=== PATIENT | female | born 1970 | race Hispanic/Latino ===

== ENCOUNTER 2017-12-27 11:45 | Outpatient (CLI) | payer BC ==
--- NOTE | 2017-12-27 14:48 | XRay Report ---
XRAY LEFT SHOULDER THREE VIEWS: 12/27/17 11:45:00 CLINICAL: Left shoulder pain. FINDINGS: No fracture or dislocation. Mild glenohumeral joint arthritis with a small inferior humeral osteophyte. Normal AC joint. The soft tissues are normal. IMPRESSION: Mild glenohumeral joint osteoarthritis.
== END 2017-12-27 11:46 | disposition home or self-care (01) ==
LOC: SPVIMAG 11:45
PROVIDERS: ATTEND Orthopaedic Surgery
DX: M19.012 Primary osteoarthritis, left shoulder (principal)